=== PATIENT | male | born 1980 | race Two or more races ===

== ENCOUNTER 2017-11-01 01:31 | Emergency (ER) | payer MEDICAID, OTHER ==
[~2017-11-01] VITALS: Ht 175.3 cm; Wt 81.6 kg
--- NOTE | 2017-11-01 01:35 | NUR ---
TO ER BED 10 COMPLAINING OF CHEST PAIN "SINCE EARLIER THIS AFTERNOON." AA/OX4. NO S/S SOB. SKIN PINK, WARM, DRY. AMBULATED TO HOSPITAL BED WITH STABLE GAIT. MOVES ALL EXTREMITIES WELL. NO N/V. PAIN NON RADIATING, 5/10 PAIN, ACHING TYPE PAIN IN SUBSTERNAL REGION. VSS. NAD. STABLE CONDITION. WILL CONTINUE TO MONITOR.
[2017-11-01] MEDS ORDERED: IV NS 0.9% 1,000 ML BAG IV ONE (02:30)
--- NOTE | 2017-11-01 02:48 | NUR ---
XRAY AT BEDSIDE
[2017-11-01 02:50] LABS: BASOPHILS # (AUTO) 0.1 /CMM (0.0-0.2); EOSINOPHILS % (AUTO) 1.9 % (0.0-6.0); HEMATOCRIT 47 % (39-51); HEMOGLOBIN 15.9 g/dL (13.5-17.5); LYMPHOCYTES % (AUTO) 29.1 % (20.0-44.0); MEAN CORPUSCULAR HGB CONC 34 g/dl (31.0-36.0); MEAN CORPUSCULAR VOLUME 91 fL (80-96); MONOCYTES # (AUTO) 0.5 /CMM (0.1-1.30); NEUTROPHILS # (AUTO) 4.1 /CMM (1.8-8.9); PLATELET COUNT (AUTO) 194 /CMM (150-450); RED BLOOD CELL COUNT(AUTO) 5.17 MIL/uL (4.5-6.0); WHITE BLOOD COUNT (AUTO) 6.8 K/uL (4.3-11.0)
[2017-11-01 03:01] LABS: CARBON DIOXIDE 31 mmol/L (21-32); CHLORIDE 102 mmol/L (98-107); CREATININE 1.1 mg/dL (0.6-1.3); GLUCOSE 112 mg/dL (74-106); POTASSIUM 3.6 mmol/L (3.5-5.1); SODIUM SERUM 140 mmol/L (136-145); UREA NITROGEN, BLOOD 8 mg/dL (7-18)
[2017-11-01 03:07] LABS: ALANINE AMINOTRANSFERASE 56 U/L (12-78); ALBUMIN 4.1 g/dL (3.4-5.0); ALKALINE PHOSPHATASE 76 U/L (46-116); ASPARTATE AMINOTRANSFERASE 25 U/L (15-37); BILIRUBIN,DIRECT 0.1 mg/dL (0.0-0.2); BILIRUBIN,TOTAL 0.3 mg/dL (0.2-1.0); TOTAL PROTEIN, SERUM 7.9 g/dL (6.4-8.2)
[2017-11-01 03:09] LABS: TROPONIN I < 0.017 ng/mL (0.00-0.056)
[2017-11-01] MEDS ORDERED: MUPIROCIN OINT 2% 22 GM TUBE ONE (03:29)
[2017-11-01] MEDS ORDERED: MUPIROCIN OINT 2% 22 GM TUBE TP ONE (03:30)
--- NOTE | 2017-11-01 03:33 | NUR ---
Patient discharged to home in stable condition. Written and verbal after care instructions given. Patient verbalizes understanding of instruction. IV removed. Catheter intact and site benign. Pressure and 4x4 applied to site. No bleeding noted. AMBULATED WITH STEADY GAIT.
[2017-11-01 03:34] VITALS: BP 127/72
== END 2017-11-01 03:35 | disposition home or self-care (01) ==
LOC: ER 01:35
DX: R07.89 Other chest pain (principal); G40.909 Epilepsy, unspecified, not intractable, without status epilepticus; E86.0 Dehydration
CPT/HCPCS: 36415; 71045; 80048; 80076; 84484; 85025; 93005; 99285; A4606; J7030; Z7610